=== PATIENT | female | born 1960 | race Caucasian/White ===

== ENCOUNTER → 2017-12-30 15:37 | Outpatient (CLI) | payer MEDICARE, MEDICAID, SELFPAY ==
[2017-12-30 18:02] LABS: Hep C Virus Ab w/Reflex Quant NEGATIVE s/c (NEGATIVE)
== END ==
PROVIDERS: Family Provider Physician Assistant; PCP Physician Assistant; Visit Provider Physician Assistant
DX: Z20.2 Contact with and (suspected) exposure to infections with a predominantly sexual mode of transmission (principal)
CPT/HCPCS: 36415; 86803

== ENCOUNTER → 2018-03-31 09:43 | Outpatient (CLI) | payer MEDICARE, MEDICAID, SELFPAY ==
[2018-03-31 10:46] LABS: Cholesterol 185 mg/dL (140-199); Glucose 100 mg/dL (70-100); HDL Cholesterol 57 mg/dL (40-60); LDL Cholesterol Calculated 102 mg/dL (<100); Triglycerides 129 mg/dL (35-150)
== END ==
PROVIDERS: PCP Physician Assistant; Visit Provider Physician Assistant
DX: E78.5 Hyperlipidemia, unspecified (principal); R73.01 Impaired fasting glucose
CPT/HCPCS: 36415; 80061; 82947

== ENCOUNTER → 2018-12-10 14:11 | Outpatient (CLI) | payer MEDICARE, MEDICAID, SELFPAY ==
[2018-12-10 14:31] LABS: Add Manual Diff / Slide Review NO; Basophils Absolute Auto 0 /uL (0-100); Basophils Percent Auto 0.6 % (0-2); Eosinophils Absolute Auto 200 /uL (0-450); Eosinophils Percent Auto 2.9 % (2-4); Hematocrit 41.6 % (36-46); Hemoglobin 13.8 g/dL (12.0-16.0); Lymphocytes Absolute Auto 2600 /uL (1100-4500); Lymphocytes Percent Auto 34.9 % (25-40); Mean Corpuscular HGB Conc 33.1 % (30-36); Mean Corpuscular Hemoglobin 28.5 PG (26-34); Monocytes Absolute Auto 600 /uL (0-900); Monocytes Percent Auto 7.8 % (3-14); Neutrophils Absolute Auto 4100 /uL (1500-7000); Neutrophils Percent Auto 53.8 % (50-75); Platelet Count 329 X10^3/uL (150-400); Red Blood Cell Count 4.83 X10^6/uL (4.0-5.2); White Blood Cell Count 7.6 X10^3/uL (4.5-11.0)
[2018-12-10 15:02] LABS: Alanine Aminotransferase 25 IU/L (9-52); Albumin 4.6 g/dL (3.5-5.0); Albumin Globulin Ratio 1.6 (1.0-2.8); Alkaline Phosphatase 49 U/L (38-126); Aspartate Aminotransferase 27 IU/L (14-36); Bilirubin Total 0.6 mg/dL (0.2-1.3); Blood Urea Nitrogen 21 mg/dL (7-17); Calcium 10.1 mg/dL (8.4-10.2); Carbon Dioxide 25 mmol/L (22-32); Chloride 104 mmol/L (98-107); Estimated Glomerular Filt Rate > 60.0 mL/min (>60); Globulin 2.9 g/dL (1.7-4.1); Glucose 97 mg/dL (70-100); HEMOLYSIS < 15 (0-50); Potassium 4.2 mmol/L (3.4-5.1); Sodium 141 mmol/L (137-145); Total Protein 7.5 g/dL (6.3-8.2)
[2018-12-10 15:05] LABS: Bacteria Urine None Seen
[2018-12-10 15:26] LABS: Appearance Urine UA CLEAR; Bilirubin Urine UA NEGATIVE (NEGATIVE); Color Urine UA YELLOW; Glucose Urine UA NEGATIVE (Negative); Ketones Urine UA NEGATIVE (NEGATIVE); Leukocyte Esterase Urine UA NEGATIVE (NEGATIVE); Nitrite Urine UA NEGATIVE (Negative); Occult Blood Urine UA NEGATIVE (Negative); Protein Urine UA NEGATIVE (Negative); Specific Gravity Urine UA >=1.030 (1.000-1.035); Urobilinogen Urine UA 0.2 E.U./dL (0.2)
[2018-12-10 15:34] LABS: Culture Indicated Urine Cult Not Indicated; RBC Urine 0-1/HPF (0-5/HPF); WBC Urine 0-1/HPF (0-5/HPF)
== END ==
PROVIDERS: PCP Physician Assistant; Visit Provider Physician Assistant
DX: G89.4 Chronic pain syndrome (principal); K57.92 Diverticulitis of intestine, part unspecified, without perforation or abscess without bleeding; N20.0 Calculus of kidney
CPT/HCPCS: 36415; 80053; 81001; 85025

== ENCOUNTER → 2019-04-06 08:00 | Outpatient (CLI) | payer MEDICARE, MEDICAID, SELFPAY ==
[2019-04-06 08:26] LABS: Cholesterol 185 mg/dL (140-199); HDL Cholesterol 47 mg/dL (40-60); LDL Cholesterol Calculated 106 mg/dL (<100); Triglycerides 161 mg/dL (35-150)
[2019-04-06 09:01] LABS: Thyroid Stimulating Hormone 4.63 uIU/mL (0.47-4.68)
== END ==
PROVIDERS: PCP Physician Assistant; Visit Provider Physician Assistant
DX: E78.5 Hyperlipidemia, unspecified (principal); R53.83 Other fatigue
CPT/HCPCS: 36415; 80061; 84443

== ENCOUNTER → 2022-04-04 12:38 | Outpatient (CLI) | payer OTHER, SELFPAY ==
--- NOTE | 2022-04-04 12:47 | DI.MRI.S_ITS ---
PROCEDURE: MR LUMBAR SPINE WO CON INDICATIONS: Spinal stenosis, lumbar region TECHNIQUE: Noncontrast sagittal T1 spin echo and T2 fast echo, sagittal STIR, and T2 fast spin echo through the lumbar spine. In cases with scoliosis, additional coronal T2 fast spin echo may be performed. COMPARISON: [facility], CR, XR LUMBAR SPINE 2 OR 3 VIEWS, 11/23/2018, 18:01. [facility], MR, MR LUMBAR SPINE WITHOUT CONTRAST, 11/23/2018, 20:11. [facility], CT, CT ABDOMEN PELVIS WITH CONTRAST, 03/09/2022, 18:39. [facility], MR, L-SPINE WITHOUT CONTRAST, 11/27/2016, 8:59. FINDINGS: Image quality: Excellent. Alignment and Curvature: There are 4 [id number] lumbar vertebral bodies. There is sacralization of L1. These findings were previously described on the comparison MRI dated November 27, 2016. For the sake of continuity, the numbering scheme is similar to the 2017 study. Patient is status post posterior fusion and discectomy from L3-L5. There is trace L2 on L3 retrolisthesis which is similar to the comparison MRI dated November 23, 2018. Bone Marrow: Marrow is of normal overall signal. No acute vertebral body compression fractures. Spinal Cord: Conus medullaris terminates at the L1 level. Visualized cord demonstrates normal signal and size. Paraspinous Soft Tissues: No paravertebral masses. There is a T2 hyperintense lesion at the lower pole of the left kidney which is unchanged from the 2019 MRI and likely represents a simple renal cyst but is incompletely characterized. T12-L1: Normal appearance. L1-L2: No canal stenosis. Mild bilateral foraminal stenosis. L2-L3: Mild disc desiccation and height loss. Broad-based disc bulge. Mild facet ligamentum flavum hypertrophy. Moderate canal stenosis. Moderate bilateral foraminal stenosis. The extent of foraminal narrowing and canal stenosis is unchanged from the 2019 study. L3-L4: Posterior fusion and discectomy. Patient is status post left hemilaminectomy. No canal stenosis. No foraminal stenosis. L4-L5: Posterior fusion and discectomy. No canal stenosis. No foraminal stenosis. L5-S1: Normal appearance. IMPRESSION: 1. Moderate canal stenosis and moderate bilateral foraminal narrowing at L2-3 which is unchanged from the study dated November 23, 2018. 2. No interval change when compared with the 2019 study. 3. Numbering convention as above with 4 non rib-bearing lumbar vertebral bodies. Dictated by: Darcy Barber M.D. on 04/04/2022 at 15:50 Approved by: Darcy Barber M.D. on 04/04/2022 at 15:57
== END ==
PROVIDERS: Referring Provider Orthopaedic Surgery Orthopaedic Surgery of the Spine; Visit Provider Orthopaedic Surgery Orthopaedic Surgery of the Spine
DX: M48.061 Spinal stenosis, lumbar region without neurogenic claudication (principal); Z98.1 Arthrodesis status
CPT/HCPCS: 72148